=== PATIENT | female | born 1940 | race Caucasian/White ===

== ENCOUNTER 2016-07-12 11:40 | Inpatient (IN) | payer MEDICARE, OTHER ==
[~2016-07-12] VITALS: Ht 165.1 cm; Wt 92.0 kg
[~2016-07-12 11:40] MED LIST: BENADRYL 50MG C50 MG PO; BROVANA15 MCG/2 M INH; LEVAQUIN750 MG PO; LEVOTHYROXINE100 MCG PO; LOPRESSOR 25 MG25 MG PO; MEDROL DOSEPAK 24 MG PO; PROVENTIL HFA 61 INH INH; SERTRALINE HCL100 MG PO; SPIRIVA HANDIH18 MCG INH; ZOCOR20 MG PO
[2016-07-12 13:40] LABS: HEMOGLOBIN 12.4 gm/dl (12.3-15.3); RED BLOOD COUNT 3.97 M/UL (4.00-5.10); WHITE BLOOD COUNT 14.5 K/UL (4.5-11.0)
[2016-07-12 13:49] LABS: BUN/CREATININE RATIO 28 (0-10)
[2016-07-13 05:48] LABS: RED BLOOD COUNT 3.58 M/UL (4.00-5.10)
[2016-07-13 06:13] LABS: BUN/CREATININE RATIO 26 (0-10)
[2016-07-14 03:50] LABS: HEMOGLOBIN 12.8 gm/dl (12.3-15.3)
[2016-07-14 03:52] LABS: RED BLOOD COUNT 4.21 M/UL (4.00-5.10)
[2016-07-14 04:06] LABS: BUN/CREATININE RATIO 30 (0-10)
[2016-07-15 03:58] LABS: HEMOGLOBIN 11.3 gm/dl (12.3-15.3); WHITE BLOOD COUNT 15.6 K/UL (4.5-11.0)
[2016-07-15 03:59] LABS: RED BLOOD COUNT 3.74 M/UL (4.00-5.10)
[2016-07-15 04:14] LABS: BUN/CREATININE RATIO 43 (0-10)
[2016-07-16 05:03] LABS: HEMOGLOBIN 11.6 gm/dl (12.3-15.3); RED BLOOD COUNT 3.82 M/UL (4.00-5.10); WHITE BLOOD COUNT 15.9 K/UL (4.5-11.0)
[2016-07-16 05:14] LABS: BUN/CREATININE RATIO 52 (0-10)
[2016-07-17 04:28] LABS: HEMOGLOBIN 11.3 gm/dl (12.3-15.3); RED BLOOD COUNT 3.74 M/UL (4.00-5.10)
[2016-07-17 04:31] LABS: WHITE BLOOD COUNT 11.9 K/UL (4.5-11.0)
[2016-07-17 04:48] LABS: BUN/CREATININE RATIO 50 (0-10)
[2016-07-18 04:03] LABS: HEMOGLOBIN 11.5 gm/dl (12.3-15.3); RED BLOOD COUNT 3.75 M/UL (4.00-5.10); WHITE BLOOD COUNT 12.1 K/UL (4.5-11.0)
[2016-07-18 04:22] LABS: BUN/CREATININE RATIO 48 (0-10)
[2016-07-20 06:50] LABS: HEMOGLOBIN 11.8 gm/dl (12.3-15.3); RED BLOOD COUNT 3.85 M/UL (4.00-5.10); WHITE BLOOD COUNT 11.1 K/UL (4.5-11.0)
[2016-07-20 07:15] LABS: BUN/CREATININE RATIO 35 (0-10)
[2016-07-21 05:13] LABS: HEMOGLOBIN 11.4 gm/dl (12.3-15.3); RED BLOOD COUNT 3.69 M/UL (4.00-5.10); WHITE BLOOD COUNT 9.5 K/UL (4.5-11.0)
[2016-07-21 05:31] LABS: BUN/CREATININE RATIO 34 (0-10)
[2016-07-22 06:01] LABS: BUN/CREATININE RATIO 35 (0-10)
== END 2016-07-22 14:30 | DRG 166 ==
LOC: ER1 11:40 → ZEROF 19:05 → CCU 19:05 → M/S 07-18 22:08
PROVIDERS: Emergency Medicine; Internal Medicine; Specialist/Technologist Athletic Trainer; ADMIT Family Medicine
PROC: 5A1945Z Respiratory Ventilation, 24-96 Consecutive Hours (ICD-10-PCS; principal; 2016-07-12)
PROC: 0BH17EZ Insertion of Endotracheal Airway into Trachea, Via Natural or Artificial Opening (ICD-10-PCS; 2016-07-12)
PROC: 0B9J8ZX Drainage of Left Lower Lung Lobe, Via Natural or Artificial Opening Endoscopic, Diagnostic (ICD-10-PCS; 2016-07-14)
PROC: 0QSJ04Z Reposition Right Fibula with Internal Fixation Device, Open Approach (ICD-10-PCS; 2016-07-15)
PROC: 0QSG04Z Reposition Right Tibia with Internal Fixation Device, Open Approach (ICD-10-PCS; 2016-07-15)
DX: J96.22 Acute and chronic respiratory failure with hypercapnia (principal); J15.1 Pneumonia due to Pseudomonas; J44.1 Chronic obstructive pulmonary disease with (acute) exacerbation; J44.0 Chronic obstructive pulmonary disease with (acute) lower respiratory infection; E87.0 Hyperosmolality and hypernatremia; S82.841A Displaced bimalleolar fracture of right lower leg, initial encounter for closed fracture; J96.21 Acute and chronic respiratory failure with hypoxia; E11.65 Type 2 diabetes mellitus with hyperglycemia; W01.0XXA Fall on same level from slipping, tripping and stumbling without subsequent striking against object, initial encounter; Y92.000 Kitchen of unspecified non-institutional (private) residence as the place of occurrence of the external cause; T38.0X5A Adverse effect of glucocorticoids and synthetic analogues, initial encounter; E03.9 Hypothyroidism, unspecified; I27.2 Other secondary pulmonary hypertension; I08.1 Rheumatic disorders of both mitral and tricuspid valves; M81.0 Age-related osteoporosis without current pathological fracture; R21 Rash and other nonspecific skin eruption; J30.9 Allergic rhinitis, unspecified; E66.9 Obesity, unspecified; Z68.33 Body mass index [BMI] 33.0-33.9, adult; Z87.891 Personal history of nicotine dependence; Z99.81 Dependence on supplemental oxygen; Z79.899 Other long term (current) drug therapy; Z90.710 Acquired absence of both cervix and uterus; Z98.42 Cataract extraction status, left eye; Z98.41 Cataract extraction status, right eye; Z98.890 Other specified postprocedural states; Z80.9 Family history of malignant neoplasm, unspecified
CPT/HCPCS: ECHO; 29515; 31500; 36415; 36600; 51702; 71010; 73564; 73590; 73610; 73630; 76000; 80048; 80053; 81001; 82550; 82553; 82803; 82962; 83036; 83735; 84439; 84443; 84484; 85025; 85027; 87040; 87070; 87077; 87086; 87186; 87205; 93005; 93306; 94002; 94003; 94640; 94660; 94664; 96374; 96375; 97110; 97116; 97530; 99284; C1713; C1776; C9113; J0330; J1120; J1335; J1650; J1940; J1956; J2185; J2270; J2310; J2405; J2920; J2930; J7030; J7040; J7050; J7120; J7509; Q0162; Q0163; Q0177

== ENCOUNTER → 2016-11-21 | Outpatient (CLI) | payer MEDICARE, OTHER | LOC: RT 14:45 | DX: J41.0 Simple chronic bronchitis (principal); R09.02 Hypoxemia; J18.9 Pneumonia, unspecified organism | CPT/HCPCS: 36600; 71020; 82803 ==

== ENCOUNTER 2020-04-16 13:32 | Emergency (ER) | payer MEDICARE, BC ==
[~2020-04-16 13:32] MED LIST changes: +ALEVE220 M1 PO; +AMARYL 2MG TABLE2 MG PO; +AUGMENTIN 875-1 EACH PO; +BUSPAR 10MG10 MG PO; +CEFUROXIME500 MG PO; +FLEXERIL 10 MG10 MG PO; +GLUCOPHAGE500 MG PO; +IPRAT-ALBUT 0.5-3 ML INH; +MEDROL4 MG PO; +MUCINEX600 MG PO; +PAROXETINE HCL20 MG PO; +SYMBICORT 160-1 INHA INH; +TYLENOL 325MG325 MG PO; +VENTOLIN HFA 66.7 GM INH
[2020-04-16 14:47] LABS: HEMOGLOBIN 12.2 gm/dl (12.3-15.3); RED BLOOD COUNT 3.85 M/UL (4.00-5.10)
[2020-04-16 15:26] LABS: BUN/CREATININE RATIO 39 (0-10)
== END 2020-04-16 19:00 | disposition short-term general hospital (02) ==
LOC: ER1 13:32
PROVIDERS: Physician Assistant
DX: I63.81 Other cerebral infarction due to occlusion or stenosis of small artery (principal); S00.03XA Contusion of scalp, initial encounter; E11.9 Type 2 diabetes mellitus without complications; J44.9 Chronic obstructive pulmonary disease, unspecified; I10 Essential (primary) hypertension; Z99.81 Dependence on supplemental oxygen; Z79.899 Other long term (current) drug therapy; Z79.84 Long term (current) use of oral hypoglycemic drugs; Z87.891 Personal history of nicotine dependence; W19.XXXA Unspecified fall, initial encounter; Y92.009 Unspecified place in unspecified non-institutional (private) residence as the place of occurrence of the external cause
CPT/HCPCS: 36415; 36600; 70450; 71045; 72125; 80053; 82550; 82553; 82803; 83874; 84484; 85025; 93005; 94664; 99284

== ENCOUNTER 2020-06-02 20:53 | Inpatient (IN) | payer MEDICARE, BC ==
[~2020-06-02] VITALS: Ht 167.6 cm; Wt 57.2 kg
[2020-06-02 21:54] LABS: HEMOGLOBIN 11.9 gm/dl (12.3-15.3); RED BLOOD COUNT 3.85 M/UL (4.00-5.10); WHITE BLOOD COUNT 16.6 K/UL (4.5-11.0)
[2020-06-02 22:11] LABS: BUN/CREATININE RATIO 48 (0-10)
[2020-06-03] MEDS ORDERED: MELATONIN3 MG PO (10:44)
[2020-06-04 02:45] LABS: HEMOGLOBIN 10.9 gm/dl (12.3-15.3); RED BLOOD COUNT 3.62 M/UL (4.00-5.10); WHITE BLOOD COUNT 13.8 K/UL (4.5-11.0)
[2020-06-04 03:37] LABS: BUN/CREATININE RATIO 45 (0-10)
[2020-06-05 03:49] LABS: HEMOGLOBIN 11.2 gm/dl (12.3-15.3); RED BLOOD COUNT 3.69 M/UL (4.00-5.10); WHITE BLOOD COUNT 12.4 K/UL (4.5-11.0)
[2020-06-05 04:11] LABS: BUN/CREATININE RATIO 42 (0-10)
[2020-06-05] MEDS ORDERED: ZITHROMAX250 MG PO (10:04)
[2020-06-05] MEDS ORDERED: TRELEGY ELLIPT1 EACH INH (10:04)
[2020-06-05] MEDS ORDERED: MEGACE 400400 MG/10 PO (10:04)
[2020-06-07] MEDS ORDERED: ROXANOL SOLN20 MG/ML PO (08:58)
[2020-06-07] MEDS ORDERED: XANAX0.25 MG PO (08:58)
== END 2020-06-07 11:10 | DRG 177 ==
LOC: ER1 20:53 → M/S 06-03 00:15 → CDU 06-03 00:15 → M/S 06-03 05:03
PROVIDERS: Internal Medicine; Physician Assistant; ADMIT Internal Medicine
DX: J15.6 Pneumonia due to other Gram-negative bacteria (principal); J96.21 Acute and chronic respiratory failure with hypoxia; J96.22 Acute and chronic respiratory failure with hypercapnia; C34.11 Malignant neoplasm of upper lobe, right bronchus or lung; J47.0 Bronchiectasis with acute lower respiratory infection; Z20.822 Contact with and (suspected) exposure to COVID-19; F41.9 Anxiety disorder, unspecified; J47.9 Bronchiectasis, uncomplicated; D53.9 Nutritional anemia, unspecified; E78.5 Hyperlipidemia, unspecified; I10 Essential (primary) hypertension; E03.9 Hypothyroidism, unspecified; E11.9 Type 2 diabetes mellitus without complications; E87.6 Hypokalemia; Z51.5 Encounter for palliative care; Z99.81 Dependence on supplemental oxygen; Z86.73 Personal history of transient ischemic attack (TIA), and cerebral infarction without residual deficits; Z90.710 Acquired absence of both cervix and uterus; Z98.42 Cataract extraction status, left eye; Z98.41 Cataract extraction status, right eye; Z84.89 Family history of other specified conditions; Z79.4 Long term (current) use of insulin
CPT/HCPCS: 36415; 36600; 71045; 71250; 80048; 80053; 81001; 82550; 82553; 82803; 82962; 83605; 83880; 84484; 85025; 86140; 87040; 93005; 94640; 94644; 94664; 94760; 96365; 96375; 99285; J0456; J1650; J1940; J2543; J2920; J2930; J7030; U0002